=== PATIENT | male | born 1980 | race Caucasian/White ===

== ENCOUNTER 2019-09-13 16:20 | Emergency (ER) | payer SELFPAY ==
[~2019-09-13] VITALS: Ht 175.3 cm; Wt 72.4 kg
[2019-09-13 16:40] VITALS: BP 131/94
--- NOTE | 2019-09-13 19:29 | NUR ---
pt called to room from lobby
--- NOTE | 2019-09-13 19:32 | NUR ---
PT AMBULATED FROM LOBBY TO ROOM WITH STEADY GAIT.
[2019-09-13] MEDS ORDERED: LORazepam 1MG TABLET PO ONE (20:00)
--- NOTE | 2019-09-13 20:02 | NUR ---
PT WITH LAB AT BS. PT STATING, " I THINK I'VE BEEN POISONED. MY SCAB IS CONTAGIOUS AND WILL INFECT THE WORLD. PLEASE SEND MY SCAB TO THE CDC". PT REFUSING MEDICATION FOR ANXIETY AT THIS TIME AND STATES "I WANT TO BREATHE THROUGH THIS". PT CALM AND COOPERATIVE AT THIS TIME.
[2019-09-13 20:24] LABS: BASOPHILS # (AUTO) 0.09 x10^3/uL (0-0.1); BASOPHILS % (AUTO) 1 % (0-1); EOSINOPHILS # (AUTO) 0.06 x10^3/uL (0-0.4); EOSINOPHILS % (AUTO) 0 % (1-7); LYMPHOCYTES # (AUTO) 2.23 x10^3/uL (1-3.4); LYMPHOCYTES % (AUTO) 15 % (22-44); MD NO; MEAN CORPUSCULAR HEMOGLOBIN 31.6 pg (27.5-34.5); MEAN CORPUSCULAR HGB CONC 33.7 g/dL (33.2-36.2); MEAN CORPUSCULAR VOLUME 93.7 fL (81-97); MEAN PLATELET VOLUME 7.7 fL (7.4-10.4); MONOCYTES # (AUTO) 1.13 x10^3/uL (0.2-0.8); MONOCYTES % (AUTO) 8 % (2-9); NEUTROPHILS # (AUTO) 11.18 x10^3/uL (1.8-6.8); NEUTROPHILS % (AUTO) 76 % (42-75); PLATELET COUNT 410 x10^3/uL (130-400); RED BLOOD COUNT 5.19 x10^6/uL (4.38-5.82); RED CELL DISTRIBUTION WIDTH 13.9 % (9.4-14.8)
[2019-09-13 20:35] LABS: ALANINE AMINOTRANSFERASE 28 U/L (12-78); ALBUMIN 4.6 g/dL (3.4-5.0); ANION GAP 5 mmol/L (5-15); CHLORIDE 106 mmol/L (98-107); CREATININE 1.32 mg/dL (0.7-1.3)
[2019-09-13 20:38] LABS: ALKALINE PHOSPHATASE 93 U/L (45-117); BILIRUBIN,TOTAL 0.5 mg/dL (0.2-1.0); CREATINE KINASE, TOTAL 115 U/L (39-308); TOTAL PROTEIN 7.7 g/dL (6.4-8.2)
[2019-09-13 21:30] LABS: MICROSCOPIC NOT IND
[2019-09-13 21:35] LABS: CULTURE INDICATED? NO
[2019-09-13 21:41] LABS: AMPHETAMINE SCREEN, URINE Negative (Negative); BARBITURATE SCREEN, URINE Negative (Negative); BENZODIAZEPINE SCREEN, URINE Negative (Negative); CANNABINOID SCREEN, URINE Positive (Negative); COCAINE SCREEN, URINE Negative (Negative); METHADONE SCREEN, URINE Negative (Negative); OPIATE SCREEN, URINE Negative (Negative)
--- NOTE | 2019-09-13 22:30 | NUR ---
ATTEMPTED TO D/C PATIENT. PT REFUSING TO LEAVE BEFORE HE SPEAKS WITH PROVIDER. ARELY OSHEA, TO SEE PT.
== END 2019-09-13 22:41 | disposition home or self-care (01) ==
LOC: ED 17:20
DX: F23 Brief psychotic disorder (principal); F22 Delusional disorders; L73.9 Follicular disorder, unspecified; F17.200 Nicotine dependence, unspecified, uncomplicated; M79.10 Myalgia, unspecified site
CPT/HCPCS: 36415; 80053; 80307; 81003; 82550; 85025; 99283